=== PATIENT | female | born 1965 | race Caucasian/White ===

== ENCOUNTER 2021-02-28 20:23 | Emergency (ER) | payer MEDICAID ==
--- NOTE | 2021-02-28 20:57 | EDM.PDOC ---
ED HPI GENERAL MEDICAL PROBLEM - General Chief Complaint: General Stated Complaint: SOB Time Seen by Provider: 02/28/21 20:40 Source of Information: Reports: Patient, EMS History Limitations: Reports: Altered Mental Status - History of Present Illness INITIAL COMMENTS - FREE TEXT/NARRATIVE: a friend of pt called EMS to bring pt here with concerns for confusion and lethargy , pt has know long Hx of alcoholism, she is here clinically appears intoxicated with alcohol her speech is slurred , eye injected and breath of liquor is apparent, she report being sober for sometime until a week ago as she started drinking again, report having couple of shots this afternoon, and that she feels weak and sleepy, she report some dyspnea as well denies any other complaints, pt is intoxicated and her hx is not reliable. she denies Hx of head injury and there are no signs of this on her presentation. - Related Data Allergies Allergy/AdvReac Type Severity Reaction Status Date / Time No Known Allergies Allergy Verified 02/28/21 20:45 Home Meds: Home Meds Lidocaine 5% [Lidoderm 5%] 1 each TOP DAILY 02/28/21 [History] Naltrexone 50 mg PO DAILY 02/28/21 [History] Ondansetron [Ondansetron ODT] 4 mg PO TID PRN 02/28/21 [History] diazePAM [Valium] 5 mg PO Q6H PRN 02/28/21 [History] Past Medical History HEENT History: Reports: Impaired Vision Respiratory History: Reports: Asthma Gastrointestinal History: Reports: Jaundice, Other (See Below) Other Gastrointestinal History: history of elevated liver enzymes [employer] History: Reports: Musculoskeletal History: Reports: Fracture Other Musculoskeletal History: left ankle Psychiatric History: Reports: Addiction Other Psychiatric History: alcoholism - Past Surgical History Musculoskeletal Surgical History: Reports: Other (See Below) Other Musculoskeletal Surgeries/Procedures:: left ankle surgery-plate placed ED ROS GENERAL - Review of Systems Review Of Systems: Unable To Obtain Reason Not Obtained: alcohol intoxication. Respiratory: Reports: Shortness of Breath Cardiovascular: Denies: Chest Pain GI/Abdominal: Denies: Vomiting ED EXAM, GENERAL - Physical Exam Exam: See Below Exam Limited By: Altered Mental Status General Appearance: Lethargic Eye Exam: Bilateral Eye: Conjunctival Injection, PERRL Ears: Normal Canal, Normal TMs Nose: Normal Inspection Throat/Mouth: Normal Inspection, Other (dry oral mucosa) Head: Atraumatic, Normocephalic Neck: Normal Inspection, Supple, Non-Tender Respiratory/Chest: No Respiratory Distress, Lungs Clear Cardiovascular: Normal Peripheral Pulses, Regular Rate, Rhythm GI/Abdominal: Normal Bowel Sounds, Soft Extremities: Normal Inspection, Normal Range of Motion Neurological: Alert, Oriented, CN II-XII Intact, Abnormal Reflexes Skin Exam: Warm Course - Vital Signs Text/Narrative:: labs results were explained to pt, pt is intoxicated with alcohol and multiple illicit drugs as well marijuana , she was kept here and monitored for few hrs until she sobered up , pt was hydrated , she has maintained stable vitals, and at time of discharge she is coherent and expressed understanding for the need to follow with a chemical dependancy treatment program, pt is medically stable to follow on this issue as out patient and she is medically stable now for discharge. Last Recorded V/S: Last Vital Signs Temp 36.7 C 02/28/21 20:31 Pulse 82 02/28/21 22:37 Resp 14 02/28/21 20:31 BP 116/67 02/28/21 22:37 Pulse Ox 95 02/28/21 20:31 - Orders/Labs/Meds Labs: Laboratory Tests 02/28/21 02/28/21 02/28/21 Range/Units 21:14 21:14 21:14 WBC 5.7 (3.0-10.3) x10-3/uL RBC 3.36 L (3.60-5.20) x10(6)uL Hgb 11.8 (11.4-15.5) g/dL Hct 35.1 (34.2-48.2) % MCV 104.2 H (76.7-100.5) fL MCH 35.2 H (23.9-33.9) pg MCHC 33.7 (31.9-34.8) g/dL RDW 14.9 (12.3-16.5) % Plt Count 159 (151-488) x10(3)uL Sodium 142 (135-145) mmol/L Potassium 3.2 L (3.5-5.3) mmol/L Chloride 106 (100-110) mmol/L Carbon Dioxide 27 (21-32) mmol/L BUN 13 (7-18) mg/dL Creatinine 0.9 (0.55-1.02) mg/dL Est Cr Clr Drug Dosing TNP Estimated GFR (MDRD) > 60 (>60) BUN/Creatinine Ratio 14.4 (9-20) Glucose 118 H (80-116) mg/dL Calcium 8.1 L (8.6-10.2) mg/dL Total Bilirubin 3.9 H (0.1-1.3) mg/dL AST 106 H (5-25) IU/L ALT 44 H (12-36) U/L Alkaline Phosphatase 119 H (56-112) IU/L Total Protein 7.3 (6.0-8.0) g/dL Albumin 2.2 L (3.5-5.2) g/dL Globulin 5.1 g/dL Albumin/Globulin Ratio 0.4 TSH, Ultra Sensitive 2.93 (0.36-3.74) IU/mL Urine Opiates Screen (NEGATIVE) Ur Buprenorphine Scrn (NEGATIVE) Ur Oxycodone Screen (NEGATIVE) Urine Methadone Screen (NEGATIVE) Ur Propoxyphene Screen (NEGATIVE) Ur Barbiturates Screen (NEGATIVE) Ur Tricyclics Screen (NEGATIVE) Ur Phencyclidine Scrn (NEGATIVE) Ur Amphetamine Screen (NEGATIVE) U Methamphetamines Scrn (NEGATIVE) U Benzodiazepines Scrn (NEGATIVE) U Cocaine Metab Screen (NEGATIVE) U Marijuana (THC) Screen (NEGATIVE) Ethyl Alcohol < 0.03 (<0.03) % 02/28/21 Range/Units 21:49 WBC (3.0-10.3) x10-3/uL RBC (3.60-5.20) x10(6)uL Hgb (11.4-15.5) g/dL Hct (34.2-48.2) % MCV (76.7-100.5) fL MCH (23.9-33.9) pg MCHC (31.9-34.8) g/dL RDW (12.3-16.5) % Plt Count (151-488) x10(3)uL Sodium (135-145) mmol/L Potassium (3.5-5.3) mmol/L Chloride (100-110) mmol/L Carbon Dioxide (21-32) mmol/L BUN (7-18) mg/dL Creatinine (0.55-1.02) mg/dL Est Cr Clr Drug Dosing Estimated GFR (MDRD) (>60) BUN/Creatinine Ratio (9-20) Glucose (80-116) mg/dL Calcium (8.6-10.2) mg/dL Total Bilirubin (0.1-1.3) mg/dL AST (5-25) IU/L ALT (12-36) U/L Alkaline Phosphatase (56-112) IU/L Total Protein (6.0-8.0) g/dL Albumin (3.5-5.2) g/dL Globulin g/dL Albumin/Globulin Ratio TSH, Ultra Sensitive (0.36-3.74) IU/mL Urine Opiates Screen Negative (NEGATIVE) Ur Buprenorphine Scrn Positive H (NEGATIVE) Ur Oxycodone Screen Negative (NEGATIVE) Urine Methadone Screen Negative (NEGATIVE) Ur Propoxyphene Screen Negative (NEGATIVE) Ur Barbiturates Screen Negative (NEGATIVE) Ur Tricyclics Screen Negative (NEGATIVE) Ur Phencyclidine Scrn Negative (NEGATIVE) Ur Amphetamine Screen Positive H (NEGATIVE) U Methamphetamines Scrn Positive H (NEGATIVE) U Benzodiazepines Scrn Positive H (NEGATIVE) U Cocaine Metab Screen Negative (NEGATIVE) U Marijuana (THC) Screen Positive H (NEGATIVE) Ethyl Alcohol (<0.03) % Meds: Medications Discontinued Medications Generic Name Dose Route Start Last Admin Trade Name Freq PRN Reason Stop Dose Admin Sodium Chloride 1,000 mls @ 999 drops/hr 02/28/21 20:59 02/28/21 21:16 Normal Saline IV 03/01/21 11:59 999 drops/hr .BOLUS ONE Administration Departure - Departure Time of Disposition: 03:00 Disposition: Home, Self-Care 01 Clinical Impression: Illicit drug use - Discharge Information Instructions: Alcohol Use Disorder, Substance Use Disorder Referrals: PCP,None [Primary Care Provider] - Forms: ED Department Discharge Additional Instructions: quit drinking and using illegal drugs. restart your naltrexone as prescribed. follow up with your primary care provider next week and discuss further options for alcohol and drug treatment. increase your water intake. Sepsis Event Note (ED) - Evaluation Sepsis Screening Result: No Definite Risk
[2021-02-28] MEDS: Sodium Chloride 0.9% 1,000 ML IV ONE (21:16)
== END 2021-02-28 22:44 | disposition home or self-care (01) ==
LOC: FB.ED 20:23
DX: F15.90 Other stimulant use, unspecified, uncomplicated (principal); F12.90 Cannabis use, unspecified, uncomplicated; F13.90 Sedative, hypnotic, or anxiolytic use, unspecified, uncomplicated; J45.909 Unspecified asthma, uncomplicated; Z79.899 Other long term (current) drug therapy
CPT/HCPCS: 36415; 80053; 80307; 84443; 85027; 99284; J7030; 99283

== ENCOUNTER 2022-12-06 09:26 | Emergency (ER) | payer MEDICAID, OTHER ==
[2022-12-06 10:50] LABS: HEMATOCRIT 46.1 % (34.2-48.2); HEMOGLOBIN 15.8 g/dL (11.4-15.5); MEAN CORPUSCULAR HEMOGLOBIN 33.3 pg (23.9-33.9); MEAN CORPUSCULAR HGB CONC 34.2 g/dL (31.9-34.8); MEAN CORPUSCULAR VOLUME 97.5 fL (76.7-100.5); RED BLOOD CELL COUNT 4.73 x10(6)uL (3.60-5.20); WHITE BLOOD CELL COUNT,WBC 6.7 x10-3/uL (3.0-10.3)
[2022-12-06 10:54] LABS: BLOOD UREA NITROGEN,BUN 21 mg/dL (7-18); CALCIUM 8.7 mg/dL (8.6-10.2); CARBON DIOXIDE,CO2 21 mmol/L (21-32); CHLORIDE,CL 105 mmol/L (100-110); CREATININE 0.7 mg/dL (0.55-1.02); ESTIMATED GFR 101 mL/min (>60); GLUCOSE RANDOM 111 mg/dL (80-116); POTASSIUM,K 3.5 mmol/L (3.5-5.3); SODIUM,NA 139 mmol/L (135-145)
[2022-12-06 10:56] LABS: INR 1.24 (1.00-1.24); PROTHROMBIN TIME 12.7 sec (9.0-11.1)
[2022-12-06 10:57] LABS: APPEARANCE,URINE CLEAR (CLEAR); BACTERIA,URINE FEW (NS); BILIRUBIN,URINE NEGATIVE (NEGATIVE); COLOR,URINE YELLOW (YELLOW); GLUCOSE,URINE NORMAL (NORMAL); KETONES,URINE 15 mg/dL (NEGATIVE); LEUKOCYTE ESTERASE,URINE NEGATIVE (NEGATIVE); NITRITE,URINE NEGATIVE (NEGATIVE); OCCULT BLOOD,URINE NEGATIVE (NEGATIVE); PROTEIN,URINE NEGATIVE (NEGATIVE); RBC,URINE 0-5 (0-5); SQUAMOUS EPITHELIAL CELLS,UR FEW (NS,R,O); UROBILINOGEN,URINE 1 mg/dL (NEGATIVE); WBC,URINE 0-5 (0-5)
[2022-12-06 11:00] LABS: A/G RATIO 0.8; ALANINE AMINOTRANSFERASE,ALT 81 U/L (12-36); ALBUMIN 3.4 g/dL (3.5-5.2); ALKALINE PHOSPHATASE 137 IU/L (56-112); ASPARTATE AMNIOTRANSFERASE,AST 94 IU/L (5-25); BILIRUBIN TOTAL 1.8 mg/dL (0.1-1.3); PROTEIN TOTAL,TP 7.5 g/dL (6.0-8.0)
[2022-12-06 11:02] LABS: AMPHETAMINES SCREEN, URINE POSITIVE (NEGATIVE); BARBITURATE SCREEN,URINE NEGATIVE (NEGATIVE); BENZODIAZEPINES SCREEN,URINE NEGATIVE (NEGATIVE); METHADONE SCREEN, URINE NEGATIVE (NEGATIVE); METHAMPHETAMINE SCREEN, URINE POSITIVE (NEGATIVE); OXYCODONE SCREEN,URINE NEGATIVE (NEGATIVE); PROPOXYPHENE SCREEN,URINE NEGATIVE (NEGATIVE); THC SCREEN,URINE POSITIVE (NEGATIVE)
[2022-12-06 11:03] LABS: BUPRENORPHINE SCREEN,URINE NEGATIVE (NEGATIVE)
== END 2022-12-06 11:40 | disposition home or self-care (01) ==
LOC: FB.ED 09:26
DX: R04.0 Epistaxis (principal); K74.60 Unspecified cirrhosis of liver; B18.2 Chronic viral hepatitis C; F19.90 Other psychoactive substance use, unspecified, uncomplicated; J45.909 Unspecified asthma, uncomplicated; Z79.899 Other long term (current) drug therapy
CPT/HCPCS: 30903; 36415; 80053; 80307; 81001; 85027; 85610; 99283

== ENCOUNTER 2024-10-07 21:28 | Emergency (ER) | payer MEDICAID, OTHER ==
[2024-10-07] MEDS: Sodium Chloride 0.9% 1,000 ML IV SCH (22:05)
[2024-10-07 22:18] LABS: BASOPHILS ABSOLUTE AUTO 0.1 x10-3/uL (0.0-0.1); EOSINOPHILS ABSOLUTE AUTO 0.1 x10-3/uL (0.0-0.8); EOSINOPHILS PERCENT AUTO 1.8 % (0.6-8.1); HEMATOCRIT 45.9 % (34.2-48.2); HEMOGLOBIN 16.5 g/dL (11.4-15.5); LYMPHOCYTES ABSOLUTE AUTO 1.4 x10-3/uL (1.0-4.4); LYMPHOCYTES PERCENT AUTO 23.4 % (18.4-52.1); MEAN CORPUSCULAR HEMOGLOBIN 35.4 pg (23.9-33.9); MEAN CORPUSCULAR VOLUME 98.4 fL (76.7-100.5); MEAN PLATELET VOLUME 9.3 fL (7.1-12.4); MONOCYTES ABSOLUTE AUTO 0.4 x10-3/uL (0.3-1.0); NEUTROPHILS PERCENT AUTO 66.8 % (30.8-76.2); PLATELET COUNT,PLT 140 x10(3)uL (151-488); RED BLOOD CELL COUNT 4.66 x10(6)uL (3.60-5.20); RED CELL DISTRIBUTION WIDTH 13.4 % (12.3-16.5); WHITE BLOOD CELL COUNT,WBC 5.9 x10-3/uL (3.0-10.3)
[2024-10-07 22:21] LABS: BLOOD UREA NITROGEN,BUN 6 mg/dL (7-18); BUN/CREATININE RATIO 8.6 (9-20); CALCIUM 8.4 mg/dL (8.6-10.2); CARBON DIOXIDE,CO2 24 mmol/L (21-32); CHLORIDE,CL 100 mmol/L (100-110); CREATININE 0.7 mg/dL (0.55-1.02); ESTIMATED GFR 100 mL/min (>60); GLUCOSE RANDOM 123 mg/dL (80-116); SODIUM,NA 137 mmol/L (135-145)
[2024-10-07 22:23] LABS: INR 1.19 (1.00-1.24); PROTHROMBIN TIME 12.2 sec (9.0-11.1)
[2024-10-07 22:26] LABS: A/G RATIO 0.7; ALANINE AMINOTRANSFERASE,ALT 82 U/L (12-36); ALBUMIN 3.4 g/dL (3.5-5.2); ALKALINE PHOSPHATASE 145 IU/L (56-112); ASPARTATE AMNIOTRANSFERASE,AST 115 IU/L (5-25); BILIRUBIN TOTAL 2.2 mg/dL (0.1-1.3); PROTEIN TOTAL,TP 8.3 g/dL (6.0-8.0)
[2024-10-07] MEDS: Sodium Chloride 0.9% 10 ML Syringe FLUSH PRN (22:44)
== END 2024-10-07 23:25 | disposition home or self-care (01) ==
LOC: FB.ED 21:28
DX: K62.5 Hemorrhage of anus and rectum (principal); K74.60 Unspecified cirrhosis of liver; B18.2 Chronic viral hepatitis C; J45.909 Unspecified asthma, uncomplicated; Z79.899 Other long term (current) drug therapy
CPT/HCPCS: 36415; 80053; 80307; 85025; 85610; 99284; J7030

== ENCOUNTER 2024-11-13 08:43 | Emergency (ER) | payer MEDICAID, OTHER ==
[2024-11-13] MEDS: Sodium Chloride 0.9% 1,000 ML IV ONE ×3 (09:25→11:46)
[2024-11-13 09:33] LABS: HEMATOCRIT 39.7 % (34.2-48.2); HEMOGLOBIN 13.8 g/dL (11.4-15.5); MEAN CORPUSCULAR HEMOGLOBIN 34.9 pg (23.9-33.9); MEAN CORPUSCULAR HGB CONC 34.8 g/dL (31.9-34.8); MEAN CORPUSCULAR VOLUME 100.3 fL (76.7-100.5); MEAN PLATELET VOLUME 9.5 fL (7.1-12.4); PLATELET COUNT,PLT 162 x10(3)uL (151-488); RED BLOOD CELL COUNT 3.96 x10(6)uL (3.60-5.20); RED CELL DISTRIBUTION WIDTH 14.3 % (12.3-16.5); WHITE BLOOD CELL COUNT,WBC 12.2 x10-3/uL (3.0-10.3)
[2024-11-13 09:39] LABS: BLOOD UREA NITROGEN,BUN 9 mg/dL (7-18); CALCIUM 7.4 mg/dL (8.6-10.2); CARBON DIOXIDE,CO2 21 mmol/L (21-32); CHLORIDE,CL 107 mmol/L (100-110); CREATININE 0.9 mg/dL (0.55-1.02); EST CRCL DRUG DOSING (CG) 48.34 mL/min; ESTIMATED GFR 74 mL/min (>60); GLUCOSE RANDOM 82 mg/dL (80-116); POTASSIUM,K 3.2 mmol/L (3.5-5.3); SODIUM,NA 141 mmol/L (135-145)
[2024-11-13 09:45] LABS: A/G RATIO 0.5; ALANINE AMINOTRANSFERASE,ALT 55 U/L (12-36); ALBUMIN 2.1 g/dL (3.5-5.2); ALKALINE PHOSPHATASE 229 IU/L (56-112); ASPARTATE AMNIOTRANSFERASE,AST 100 IU/L (5-25); PROTEIN TOTAL,TP 6.7 g/dL (6.0-8.0)
[2024-11-13 09:48] LABS: BAND PERCENT MAN 1 % (0-6); EOSINOPHILS PERCENT MAN 1 % (0-5); LYMPHOCYTES PERCENT MAN 2 % (13-37); MONOCYTES PERCENT MAN 3 % (4-12); SEG NEUTROPHILS PERCENT MAN 93 % (46-82)
[2024-11-13 09:49] LABS: INR 1.36 (1.00-1.24); PROTHROMBIN TIME 13.8 sec (9.0-11.1); PTT,PARTIAL THROMBOPLSTIN TIME 25.9 SECONDS (24.4-33.2)
[2024-11-13 10:00] LABS: D-DIMER QUANTITATIVE 14.63 mg/LFEU (0.0-0.59)
[2024-11-13] MEDS: Iopamidol 755 Mg/ML 100 ML Bottle IV SCH (10:18)
[2024-11-13] MEDS ORDERED: Norepinephrine Bit/D5W Premix 4 MG in Premix Bag 1 BAG IV SCH (11:00)
[2024-11-13] MEDS ORDERED: Norepinephrine 4 MG in Dextrose 5% in Water 246 ML IV SCH ×2 (11:00)
[2024-11-13] MEDS: Piperacillin/Tazobactam 3.375 GM in Sodium Chloride 0.9% 50 ML IV SCH (11:33)
[2024-11-13] MEDS: Norepinephrine Bit/D5W Premix 250 ML ONE (11:59)
[2024-11-13 12:50] LABS: APPEARANCE,URINE CLEAR (CLEAR); BILIRUBIN,URINE NEGATIVE (NEGATIVE); COLOR,URINE YELLOW (YELLOW); GLUCOSE,URINE NORMAL (NORMAL); KETONES,URINE NEGATIVE (NEGATIVE); LEUKOCYTE ESTERASE,URINE NEGATIVE (NEGATIVE); NITRITE,URINE NEGATIVE (NEGATIVE); OCCULT BLOOD,URINE LARGE (NEGATIVE); PROTEIN,URINE TRACE mg/dL (NEGATIVE); UROBILINOGEN,URINE NORMAL (NEGATIVE)
[2024-11-13 12:51] LABS: BACTERIA,URINE FEW (NS); EPITHELIAL CELLS,URINE MODERATE; WBC,URINE 0-5 (0-5)
== END 2024-11-13 14:00 ==
LOC: FB.ED 08:43
DX: A41.9 Sepsis, unspecified organism (principal); R65.21 Severe sepsis with septic shock; R79.89 Other specified abnormal findings of blood chemistry; J45.909 Unspecified asthma, uncomplicated; Z79.899 Other long term (current) drug therapy; Z87.891 Personal history of nicotine dependence
CPT/HCPCS: 36415; 71260; 74177; 80053; 81001; 83605; 83690; 84484; 85025; 85379; 85610; 85730; 93005; 93010; 96361; 96365; 99285; 99285-25; J2543; J7030; Q9967